=== PATIENT | male | born 1965 | race Hispanic/Latino ===

== ENCOUNTER 2016-12-02 07:26 | Day surgery (SDC) | payer BC ==
[2016-12-02] MEDS ORDERED: Lactated Ringer's 500 ML IV ONE (08:10)
[2016-12-02 08:24] VITALS: TEMP 97.3
[2016-12-02 09:39] VITALS: BP 110/71; PULSE 70; RESP 16; O2SAT 100
== END 2016-12-02 10:39 | disposition home or self-care (01) ==
LOC: H.ENDO 07:26
PROVIDERS: ATTEND Internal Medicine Gastroenterology
DX: Z12.11 Encounter for screening for malignant neoplasm of colon (principal); E78.5 Hyperlipidemia, unspecified; F41.9 Anxiety disorder, unspecified; K64.4 Residual hemorrhoidal skin tags; K64.0 First degree hemorrhoids
CPT/HCPCS: 45378; J7120